=== PATIENT | female | born 1965 | race Caucasian/White ===

== ENCOUNTER → 2018-03-16 | Outpatient (CLI) | payer MEDICARE, OTHER ==
[~2018-03-16] MED LIST: ATOR80 PO; Atenolol-Chlor1 EAC1 PO; PARO20 PO
[2018-03-16 12:51] LABS: Protein, Urine Quantitative 8.1 mg/dL (0.0-11.9)
[2018-03-16 13:04] LABS: Microalbumin, Urine Quant. 17.1 mg/L (0.000-20.000)
== END | disposition home or self-care (01) ==
LOC: LAB 08:01 → LAB SHORT 08:01 → LAB FUT 03-11 16:20
PROVIDERS: Internal Medicine Nephrology
DX: N18.2 Chronic kidney disease, stage 2 (mild) (principal); D63.1 Anemia in chronic kidney disease; N25.81 Secondary hyperparathyroidism of renal origin; E55.9 Vitamin D deficiency, unspecified; E78.00 Pure hypercholesterolemia, unspecified; R76.9 Abnormal immunological finding in serum, unspecified; R94.5 Abnormal results of liver function studies; R94.6 Abnormal results of thyroid function studies
CPT/HCPCS: 81050; 82043; 82570; 84156

== ENCOUNTER → 2018-06-17 | Outpatient (CLI) | payer MEDICARE, OTHER | LOC: PLD 08:45 → LAB SHORT 08:45 | DX: Z12.4 Encounter for screening for malignant neoplasm of cervix (principal); Z87.410 Personal history of cervical dysplasia | CPT/HCPCS: 88305 ==

== ENCOUNTER → 2018-09-22 | Outpatient (CLI) | payer MEDICARE, OTHER | END | disposition home or self-care (01) | LOC: LAB SHORT 19:19 → LAB 19:19 | DX: E11.9 Type 2 diabetes mellitus without complications (principal) | CPT/HCPCS: 83036 ==

== ENCOUNTER → 2019-02-23 | Outpatient (CLI) | payer MEDICARE, OTHER ==
[~2019-02-23] MED LIST changes: +ATOR40TA PO; +Amlodipine Bes2.5 MG PO; +BUPR150ER PO; +GLIP5ER PO; +METF500C PO; +OMEPRAZOLE20 MG PO; +PARO10 PO; +POTA10T PO; +THERA-D2000 UNIT PO; +TRAZ50 PO; +ZESTORETIC 20-1 EACH PO
== END ==
LOC: LAB SHORT 11:52 → PLD 11:52
DX: N85.8 Other specified noninflammatory disorders of uterus (principal)
CPT/HCPCS: 88305

== ENCOUNTER 2020-06-02 06:17 | Day surgery (SDC) | payer MEDICARE, OTHER ==
[~2020-06-02] VITALS: Ht 170.2 cm; Wt 95.9 kg
[~2020-06-02 06:17] MED LIST changes: +FISH OIL 1,2001 EAC7
[2020-08-28] MEDS ORDERED: AMLO5 PO (10:31)
[2020-08-28] MEDS ORDERED: HYDCHL25 PO (10:31)
[2020-08-28] MEDS ORDERED: ATOR80 PO (10:31)
[2020-08-28] MEDS ORDERED: CALCIUM CIT 311 EACH PO (10:31)
[2020-08-28] MEDS ORDERED: Budeprion Xl300 MG PO (10:31)
[2020-08-28] MEDS ORDERED: Prinivil10 MG PO (10:32)
[2020-08-28] MEDS ORDERED: METF500 PO (10:32)
[2020-08-28] MEDS ORDERED: OMEP20ER PO (10:32)
[2020-08-28] MEDS ORDERED: FISH OIL 1,2001 EAC7 PO (10:32)
[2020-08-28] MEDS ORDERED: CHANTIX0.5 MG PO (10:33)
[2020-08-28] MEDS ORDERED: POTA10T PO (10:33)
[2020-08-28] MEDS ORDERED: TRAZ50 PO (10:33)
[2020-08-28] MEDS ORDERED: PARO20 PO (10:33)
== END 2020-06-02 08:33 | disposition home or self-care (01) ==
LOC: ORSCSDS 06:17
PROVIDERS: Orthopaedic Surgery
PROC: 01N50ZZ Release Median Nerve, Open Approach (ICD-10-PCS; principal; 2020-06-02 07:30)
DX: G56.01 Carpal tunnel syndrome, right upper limb (principal); I10 Essential (primary) hypertension; J44.9 Chronic obstructive pulmonary disease, unspecified; E11.9 Type 2 diabetes mellitus without complications; F32.9 Major depressive disorder, single episode, unspecified; Z79.899 Other long term (current) drug therapy; Z79.84 Long term (current) use of oral hypoglycemic drugs; Z87.891 Personal history of nicotine dependence
CPT/HCPCS: 82947; J0690; J1100; J2405; J2704; J7120

== ENCOUNTER 2020-09-01 06:54 | Day surgery (SDC) | payer MEDICARE, OTHER ==
[~2020-09-01] VITALS: Ht 170.2 cm; Wt 99.5 kg
[~2020-09-01 06:54] MED LIST changes: +AMLO5 PO; +Budeprion Xl300 MG PO; +CALCIUM CIT 311 EACH PO; +CHANTIX0.5 MG PO; +FISH OIL 1,2001 EAC7 PO; +HYDCHL25 PO; +METF500 PO; +OMEP20ER PO; +Prinivil10 MG PO
--- NOTE | 2020-09-01 09:06 | NUR ---
09/01/20 0906 Lalo Sofia 1 MG EPI ADDED TO THE FIRST BAG OF LR FOR IRRIGATION. BUPIVACAINE 0.5% 30 MLS MIXED WITH 0.15 ML OF EPI PER ORDER TO CONSTITUTE BUPIVACAINE 0.5% 1:200,000 FOR INJECTION AT OPSITE BY DR HIGGINS.
--- NOTE | 2020-09-01 09:57 | NUR ---
09/01/20 0957 Zahra Grove PT UNABLE TO KEEP SATS CONSISTENLY ABOVE 92% O2 REAPPLIED @ 0953
== END 2020-09-01 10:52 | disposition home or self-care (01) ==
LOC: ORSCSDS 06:54
PROVIDERS: Orthopaedic Surgery
PROC: 0SBC4ZZ Excision of Right Knee Joint, Percutaneous Endoscopic Approach (ICD-10-PCS; principal; 2020-09-01 08:30)
DX: S83.281A Other tear of lateral meniscus, current injury, right knee, initial encounter (principal); M23.041 Cystic meniscus, anterior horn of lateral meniscus, right knee; I10 Essential (primary) hypertension; E11.9 Type 2 diabetes mellitus without complications; J44.9 Chronic obstructive pulmonary disease, unspecified; F17.210 Nicotine dependence, cigarettes, uncomplicated; E78.5 Hyperlipidemia, unspecified; F32.9 Major depressive disorder, single episode, unspecified; Z79.84 Long term (current) use of oral hypoglycemic drugs
CPT/HCPCS: 82947; J0171; J0690; J1100; J1885; J2250; J2405; J2704; J3010

== ENCOUNTER → 2024-03-01 | Outpatient (CLI) | payer OTHER | LOC: LAB SHORT 08:15 | DX: R87.618 Other abnormal cytological findings on specimens from cervix uteri (principal); Z87.42 Personal history of other diseases of the female genital tract | CPT/HCPCS: 88305 ==

== ENCOUNTER → 2024-06-09 | Outpatient (CLI) | payer OTHER | END | disposition home or self-care (01) | LOC: LAB SHORT 11:06 → LAB 11:06 | DX: R39.9 Unspecified symptoms and signs involving the genitourinary system (principal) | CPT/HCPCS: 87077; 87086; 87186 ==